=== PATIENT | female | born 1960 | race Caucasian/White ===

== ENCOUNTER 2020-09-25 19:23 | Emergency (ER) | payer SELFPAY ==
--- NOTE | ~2020-09-25 | CT_ITS ---
EXAMINATION: CT abdomen pelvis wo con DATE: 09/25/2020 20:39 INDICATION: Left flank pain TECHNIQUE: Computed tomography (CT) of the abdomen and pelvis was performed without intravenous contr ast. The dose-length product (DLP) was 1411.87 mGy-cm. Automated exposure control and iterative recon struction technique were employed. COMPARISON: 01/15/2018 FINDINGS: Minimal dependent atelectasis is present in the lung bases. The heart size is normal. The l iver, spleen, pancreas, and adrenal glands are normal. Stones are present in the nondistended gallbla dder. There is a 6 mm stone in the proximal left ureter which causes mild left hydronephrosis. There are six nonobstructing stones of the left kidney which measure up to 4 mm. Punctate right kidney ston es measure up to 2 mm. Cysts of the kidneys measure up to 2.4 cm on the left. No pathologically enlar ged abdominal or pelvic lymph nodes are identified. There is no free intraperitoneal gas or evidence of bowel obstruction. The appendix is normal. There is mild lumbar spondylosis. IMPRESSION: 1. 6 mm stone in the proximal left ureter causing mild hydronephrosis. Consider KUB for treatment juan nning purposes. 2. Bilateral nonobstructing nephrolithiasis. Reviewed, dictated and finalized at location A. T PREPARER IMPRESSION: 1. 6 mm stone in the proximal left ureter causing mild hydronephrosis. Consider KUB for treatment planning purposes. 2. Bilateral nonobstructing nephrolithiasis.
--- NOTE | ~2020-09-25 | XR_ITS ---
EXAMINATION: XR abdomen/kub 1V INDICATION: Left flank pain TECHNIQUE: Supine views of the abdomen were obtained on 2 radiographs. COMPARISON: CT from today FINDINGS: There is a 4mm stone in the proximal left ureter at the level of the left L3 transverse pro cess. Bilateral nephrolithiasis seen on CT examination is not definitely identified. The bowel gas pa ttern is normal. IMPRESSION: 1. 4 mm stone of the proximal left ureter. Reviewed, dictated and finalized at location A. F INFORMATION OFFICER
[2020-09-25 19:40] VITALS: BP 164/98; PULSE 112; RESP 22; TEMP 36.9; O2SAT 97
[2020-09-25 19:56] LABS: Basophils Absolute Auto 0.1 K/mm3 (0.0-0.1); Basophils Percent Auto 0.5 % (0.2-1.2); Eosinophils Absolute Auto 0.1 K/mm3 (0-0.3); Hematocrit 36.9 % (37.0-47.0); Hemoglobin 12.2 g/dL (12.0-15.0); Immature Granulocyte Absolute 0.08 K/mm3 (0.00-0.031); Immature Granulocyte Percent A 0.6 % (0-0.5); Lymphocytes Absolute Auto 3.01 K/mm3 (0.9-3.2); Lymphocytes Percent Auto 21.1 % (18.3-44.2); Mean Corpuscular HGB Conc 33.1 g/dl (32-36); Mean Corpuscular Hemoglobin 28.4 pg (26-34); Mean Corpuscular Volume 85.8 fl (80-100); Mean Platelet Volume 10.3 fl (7.4-10.4); Monocytes Percent Auto 6.8 % (2.6-8.5); Platelet Count Result 289 k/mm3 (150-375); Red Cell Distribution Width 13.2 % (11.5-14.5); White Blood Count 14.3 K/mm3 (4.5-10.0)
[2020-09-25 20:07] LABS: Anion Gap 9 mmol/L (8-16); Blood Urea Nitrogen 21 mg/dL (7-17); Calcium 9.3 mg/dL (8.4-10.2); Carbon Dioxide 24 mmol/L (22-30); Chloride 105 mmol/L (98-107); Estimated CRCL calculation 54 ml/min; Estimated Glomerular Filt Rate 46; Glucose 231 mg/dL (65-105); Potassium 3.8 mmol/L (3.4-5.0); Sodium 138 mmol/L (137-145)
--- NOTE | 2020-09-25 20:29 | ED.GENADULT ---
HPI - General Adult General Chief complaint: Abdominal Pain Stated complaint: left flank pain Time Seen by Provider: 09/25/20 20:00 History of Present Illness HPI narrative: Patient is a 60-year-old female with history of kidney stones who presents ER with sudden onset left flank pain. Began several hours ago. Patient reports pain is down lower quadrant of the abdomen. Associate with nausea and vomiting as well as sweats. No burning urination but she does have urinary frequency. Feels similar to previous stones. No alleviating factors. Related Data Allergies Allergy/AdvReac Type Severity Reaction Status Date / Time No Known Drug Allergies Allergy Mild Other Verified 09/25/20 20:05 Review of Systems Review of Systems: All systems reviewed & are unremarkable except as noted in HPI and below Constitutional: Constitutional: Denies chills, Denies fever(s) and Denies weakness Gastrointestinal: Gastrointestinal: Reports abdominal pain, Denies constipation, Denies diarrhea, Reports nausea and Reports vomiting Genitourinary: Genitourinary: Reports nocturia, Denies dysuria and Reports flank pain PMFSH Past Medical History Medical History (Updated 09/25/20 @ 23:47 by Jose Campbell MD) Belching CAD (coronary artery disease) Diabetes mellitus GERD (gastroesophageal reflux disease) H/O acute myocardial infarction H/O malignant melanoma of skin Hypertensive heart disease without heart failure Insomnia SOHAIL (obstructive sleep apnea) Osteoarthritis Pure hypercholesterolemia Family History Family History Father Cerebrovascular accident Carcinoma of colon Social History Social History Smoking status: Former smoker Smoking end date: 07/24/15 Alcohol intake: never Exam Narrative: Exam Narrative: GENERAL: Uncomfortable-appearing, well-nourished, and in mild distress. HEAD: Normocephalic, atraumatic. CHEST: Clear to auscultation. No respiratory distress. HEART: Tachycardic and regular. Normal peripheral pulses. ABDOMEN: Soft, nontender, nondistended. No CVA tenderness. EXTREMITIES: Normal range of motion. No edema. SKIN: Warm, dry, no rash. NEURO: Alert and oriented x3. PSYCH: Normal mood and affect. Course Course Emergency Course: Discussed case with Dr. Mancilla. Recommends sending patient's urine for culture and placing her on Cipro given her elevated white blood cell count. Feels patient can go home as her pain is controlled with Toradol. Patient aware of diagnosis and treatment plan. Discharged with Powderly/Flomax/ciprofloxacin/Phenergan. Vital Signs Vital signs: Vital Signs Temperature 98.4 F 09/25/20 19:40 Pulse Rate 112 H 09/25/20 19:40 Respiratory Rate 22 H 09/25/20 19:40 Blood Pressure 164/98 H 09/25/20 19:40 Pulse Oximetry 97 09/25/20 19:40 Temperature 98.4 F 09/25/20 19:40 Pulse Rate 77 09/25/20 22:48 Respiratory Rate 16 09/25/20 22:48 Blood Pressure 133/51 L 09/25/20 22:48 Pulse Oximetry 96 09/25/20 22:48 Medical Decision Making Vital Signs Vital Signs: Vital Signs Temperature 98.4 F 09/25/20 19:40 Pulse Rate 112 H 09/25/20 19:40 Respiratory Rate 22 H 09/25/20 19:40 Blood Pressure 164/98 H 09/25/20 19:40 Pulse Oximetry 97 09/25/20 19:40 Temperature 98.4 F 09/25/20 19:40 Pulse Rate 77 09/25/20 22:48 Respiratory Rate 16 09/25/20 22:48 Blood Pressure 133/51 L 09/25/20 22:48 Pulse Oximetry 96 09/25/20 22:48 Lab Data Result diagrams: 09/25/20 19:45 09/25/20 19:46 Labs: Lab Results 09/25/20 09/25/20 09/25/20 Range/Units 19:45 19:46 23:27 WBC 14.3 H (4.5-10.0) K/mm3 RBC 4.30 (4.2-5.4) M/mm3 Hgb 12.2 (12.0-15.0) g/dL Hct 36.9 L (37.0-47.0) % MCV 85.8 (80-100) fl MCH 28.4 (26-34) pg MCHC 33.1 (32-36) g/dl RDW 13.2 (11.5-14.
[2020-09-25] MEDS: KETOROLAC 30 MG/ML VIAL (*BKC) IV PUSH (20:32)
[2020-09-25] MEDS: SODIUM CHLORIDE 0.9% IV 1,000 ML 999 ML IV CONT (20:33)
[2020-09-25] MEDS: ONDANSETRON INJ 4 MG/2 ML VIAL IV PUSH ×2 (20:33→23:48)
[2020-09-25 22:48] VITALS: BP 133/51; PULSE 77; RESP 16; O2SAT 96
[2020-09-25 23:42] LABS: Add Urine Microscopic? YES; Appearance Urine Clear (Clear); Bilirubin Urine Negative (Negative); Blood Urine 3+ (Negative); Color Urine Yellow (Yellow); Glucose Urine UA Negative (Negative); Ketones Urine Negative (Negative); Leukocyte Esterase Ur Trace LEU/UL (Negative); Mucus Urine Few /lpf; Nitrate Urine Negative (Negative); Protein Urine 1+ mg/dL (Negative); RBC Urine >75 /hpf (0-2); Specific Grav Ur 1.025 (1.001-1.035); Squamous Epithelial Cell Urine Few /hpf (Few); Urobilinogen Urine Negative mg/dL (<2.0)
[2020-09-25] MEDS: CIPROFLOXACIN 500 MG TAB PO (23:51)
[2020-09-26] MEDS: HYDROcodone/acetaminophen (*CRX) 5-325 MG TABLET 1 TAB PO
[2020-09-26 00:18] VITALS: BP 139/57; PULSE 79; RESP 18; O2SAT 97
== END 2020-09-26 00:20 | disposition home or self-care (01) ==
PROVIDERS: Emergency Medicine; Emergency Provider Emergency Medicine; PCP Family Medicine
DX: N13.2 Hydronephrosis with renal and ureteral calculous obstruction (principal); I25.10 Atherosclerotic heart disease of native coronary artery without angina pectoris; K21.9 Gastro-esophageal reflux disease without esophagitis; E11.9 Type 2 diabetes mellitus without complications; I25.2 Old myocardial infarction; Z85.820 Personal history of malignant melanoma of skin; I11.9 Hypertensive heart disease without heart failure; G47.33 Obstructive sleep apnea (adult) (pediatric); E78.00 Pure hypercholesterolemia, unspecified; M19.90 Unspecified osteoarthritis, unspecified site; Z87.891 Personal history of nicotine dependence
CPT/HCPCS: 36415; 74018; 74176; 80048; 81001; 85025; 87086; 87088; 96361; 96374; 96375; 96376; 99284; A9270; J1885; J2405; J7030